=== PATIENT | female | born 1995 | race Caucasian/White ===

== ENCOUNTER 2017-01-08 11:39 | Emergency (ER) | payer OTHER ==
--- NOTE | 2017-01-08 13:03 | EDPHY ---
H & P Time Seen by Provider: 01/08/17 12:54 HPI/ROS: CHIEF COMPLAINT: Fever HISTORY OF PRESENT ILLNESS: The patient is a 21 year old female s/p endoscopy 2 days ago presents to the emergency department with fever and diffuse myalgias. The patient had a fever of 101 last night. Today she had 1 episode of diarrhea and complains of general malaise. She has a moderate headache. She reports no changes in abdominal pain. h/o gastritis and ongoing epigastric discomfort. EGD revealed gastritis. No urinary complaints. No cough, sore throat, or congestion. REVIEW OF SYSTEMS: A comprehensive 10 point review of systems is otherwise negative aside from elements mentioned in the history of present illness. Past Medical/Surgical History: Gastritis. Social History: [employer] student. Nonsmoker. Social alcohol. Smoking Status: Never smoked Physical Exam: General Appearance: Alert, nontoxic-appearing Eyes: Pupils equal and round, no conjunctival injection ENT, Mouth: Mucous membranes moist Neck: Normal inspection Respiratory: Lungs are clear to auscultation Cardiovascular: Regular rate and rhythm Gastrointestinal: Abdomen is soft and non-tender Neurological: A&O, nonfocal, normal gait Skin: Warm and dry, no rash Extremities: Normal inspection Psychiatric: Mood and affect normal Constitutional: Initial Vital Signs Temperature (C) 36.8 C 01/08/17 11:43 Heart Rate 114 H 01/08/17 11:43 Respiratory Rate 20 01/08/17 11:43 Blood Pressure 119/69 01/08/17 11:43 O2 Sat (%) 97 01/08/17 11:43 O2 Delivery Mode Room Air Allergies/Adverse Reactions: No Known Allergies Allergy (Verified 01/08/17 11:42) Home Medications: Medication Instructions Recorded Orsythia-28 Tablet 11/20/15 Oseltamivir Phosphate [Tamiflu 75 75 mg PO BID #10 cap 01/08/17 mg (RX)] Pantoprazole Sodium 01/08/17 Medical Decision Making - Diagnostics Imaging: Study: X-ray of the chest was obtained. Results: No acute disease. I viewed the images myself on the PACS system. ED Course/Re-evaluation: This patient presents with influenza-like sx. There is no evidence of complication related to endoscopy, given that she has no abdominal pain and no chest pain. Plan to test for influenza. Chest x-ray was ordered. IV was established. The patient received 1L normal saline, 30mg Toradol, and 4mg Zofran. UA is negative for leukocytes, no evidence for UTI. She feels much better after IV IV medications. She will go home with Tamiflu for suspected influenza and with symptomatic treatment. Differential Diagnosis: Differential diagnosis includes UTI, pyelonephritis, cholecystitis, influenza, cellulitis, pneumonia. - Data Points Laboratory Results: Laboratory Results 01/08/17 13:45 01/08/17 13:45 01/08/17 01/08/17 01/08/17 13:45 13:45 13:45 WBC 8.70 10^3/uL 10^3/uL (3.80-9.50) RBC 5.04 10^6/uL 10^6/uL (4.18-5.33) Hgb 14.2 g/dL g/dL (12.6-16.3) Hct 43.2 % % (38.0-47.0) MCV 85.7 fL fL (81.5-99.8) MCH 28.2 pg pg (27.9-34.1) MCHC 32.9 g/dL g/dL (32.4-36.7) RDW 12.3 % % (11.5-15.2) Plt Count 278 10^3/uL 10^3/uL (150-400) MPV 9.9 fL fL (8.7-11.7) Neut % (Auto) 73.7 % % (39.3-74.2) Lymph % (Auto) 14.8 % L % (15.0-45.0) [place] % (Auto) 10.7 % % (4.5-13.0) Eos % (Auto) 0.1 % L % (0.6-7.6) Baso % (Auto) 0.5 % % (0.3-1.7) Nucleat RBC Rel Count 0.0 % % (0.0-0.2) Absolute Neuts (auto) 6.41 10^3/uL 10^3/uL (1.70-6.50) Absolute Lymphs (auto) 1.29 10^3/uL 10^3/uL (1.00-3.00) Absolute Monos (auto) 0.93 10^3/uL H 10^3/uL (0.30-0.80) Absolute Eos (auto) 0.01 10^3/uL L 10^3/uL (0.03-0.40) Absolute Basos (auto) 0.04 10^3/uL 10^3/uL (0.02-0.10) Absolute Nucleated RBC 0.00 10^3/uL 10^3/uL (0-0.01) Immature Gran % 0.2 % % (0.0-1.1) Immature Gran # 0.02 10^3/uL 10^3/uL (0.00-0.10) Sodium 134 mEq/L mEq/L (134-144) Potassium 4.1 mEq/L mEq/L (3.5-5.2) Chloride 102 mEq/L mEq/L (97-110) Carbon Dioxide 21 mEq/l L mEq/l (22-31) Anion Gap 11 mEq/L mEq/L (8-16) BUN 8 mg/dL mg/dL (7-23) Creatinine 0.7 mg/dL mg/dL (0.6-1.0) Estimated GFR > 60 Glucose 80 mg/dL mg/dL (70-100) Calcium 9.5 mg/dL mg/dL (8.5-10.4) Monoscreen NEGATIVE (NEGATIVE) Influenza Typ A,B (DFA) 01/08/17 13:11 WBC RBC Hgb Hct MCV MCH MCHC RDW Plt Count MPV Neut % (Auto) Lymph % (Auto) [place] % (Auto) Eos % (Auto) Baso % (Auto) Nucleat RBC Rel Count Absolute Neuts (auto) Absolute Lymphs (auto) Absolute Monos (auto) Absolute Eos (auto) Absolute Basos (auto) Absolute Nucleated RBC Immature Gran % Immature Gran # Sodium Potassium Chloride Carbon Dioxide Anion Gap BUN Creatinine Estimated GFR Glucose Calcium Monoscreen Influenza Typ A,B (DFA) NEGATIVE FOR FLU (NEGATIVE) Medications Given: Discontinued Medications Sodium Chloride (Ns) 1,000 mls @ 0 mls/hr IV ONCE ONE PRN Reason: Wide Open Stop: 01/08/17 13:05 Last Admin: 01/08/17 13:52 Dose: 1,000 mls Ketorolac Tromethamine (Toradol) 30 mg IVP EDNOW ONE Stop: 01/08/17 13:05 Last Admin: 01/08/17 13:52 Dose: 30 mg Ondansetron HCl (Zofran) 4 mg IVP EDNOW ONE Stop: 01/08/17 13:05 Last Admin: 01/08/17 13:52 Dose: 4 mg Departure - Departure Disposition: Home, Routine, Self-Care Clinical Impression: Influenza Condition: Good Instructions: Influenza (ED) Additional Instructions: 1. Drink plenty of fluids. 2. Alternate between Tylenol and Ibuprofen every 3 hours. 3. Followup at [facility] for recheck. Referrals: [facility] LEONIE [facility],. [Primary Care Provider] - As per Instructions Prescriptions: Oseltamivir Phosphate [Tamiflu 75 mg (RX)] 75 mg PO BID #10 cap Report Scribed for: Marleni Braga Report Scribed by: Neda Arguelles Date of Report: 01/08/17 Time of Report: 13:06 Physician Review and Approval Statement: 01/08/17 13:06 Portions of this chart were entered by a scribe. I personally performed the history and physical exam. I have reviewed this chart and agree with the documentation.
[2017-01-08] MEDS ORDERED: NS 1,000 ML IV ONE (13:04)
[2017-01-08] MEDS ORDERED: ONDANSETRON 4 MG/2 ML VIAL IVP ONE (13:04)
[2017-01-08] MEDS ORDERED: KETOROLAC 30 MG/1 ML SDV IVP ONE (13:04)
[2017-01-08 14:00] LABS: % IMMATURE GRANULYOCYTES 0.2 % (0.0-1.1); ABSOLUTE IMMATURE GRANULOCYTES 0.02 10^3/uL (0.00-0.10); ADD DIFF? NO; ADD MORPH? NO; ADD SCAN? NO; ATYPICAL LYMPHOCYTE FLAG 70 (0-99); FRAGMENT RBC FLAG 0 (0-99); HEMATOCRIT 43.2 % (38.0-47.0); HEMOGLOBIN 14.2 g/dL (12.6-16.3); LEFT SHIFT FLG 0 (0-99); LIPEMIA HEMOLYSIS FLAG 80 (0-99); MEAN CELL HEMOGLOBIN 28.2 pg (27.9-34.1); MEAN CELL HEMOGLOBIN CONCENTR. 32.9 g/dL (32.4-36.7); MEAN CELL VOLUME 85.7 fL (81.5-99.8); MEAN PLATELET VOLUME 9.9 fL (8.7-11.7); PLATELET CLUMPS FLAG 10 (0-99); PLATELET COUNT 278 10^3/uL (150-400); RED BLOOD CELL COUNT 5.04 10^6/uL (4.18-5.33); RED CELL DISTRIBUTION WIDTH 12.3 % (11.5-15.2)
[2017-01-08 14:25] LABS: ANION GAP 11 mEq/L (8-16); CALCIUM 9.5 mg/dL (8.5-10.4); CARBON DIOXIDE 21 mEq/l (22-31); CHLORIDE 102 mEq/L (97-110); CREATININE 0.7 mg/dL (0.6-1.0); GLOMERULAR FILTRATION RATE > 60; GLUCOSE 80 mg/dL (70-100); POTASSIUM 4.1 mEq/L (3.5-5.2); SODIUM 134 mEq/L (134-144)
[2017-01-08 15:01] VITALS: BP 121/62; PULSE 86; RESP 16; TEMP 99.3; O2SAT 96
== END 2017-01-08 15:00 | disposition home or self-care (01) ==
DX: J11.1 Influenza due to unidentified influenza virus with other respiratory manifestations (principal)
CPT/HCPCS: 96374; J1885; J2405